=== PATIENT | male | born 1970 | race Caucasian/White ===

== ENCOUNTER 2017-01-20 16:50 | Emergency (ER) | payer OTHER ==
[~2017-01-20] VITALS: Ht 182.9 cm; Wt 69.1 kg
[2017-01-20] MEDS ORDERED: FLUORESCEIN OPHTH 1 MG STRIP As Ordered ONE (17:32)
[2017-01-20] MEDS ORDERED: FLUORESCEIN OPHTH 1 MG STRIP OD ONE (17:45)
[2017-01-20 18:30] VITALS: BP 124/70
== END 2017-01-20 18:36 | disposition home or self-care (01) ==
LOC: M ED 18:35
DX: H10.31 Unspecified acute conjunctivitis, right eye (principal); F17.200 Nicotine dependence, unspecified, uncomplicated

== ENCOUNTER → 2018-08-18 | Outpatient (CLI) | payer OTHER ==
[2018-08-18 18:10] LABS: BASO # 0.1 10^3/uL (0.0-0.2); BASO % 0.7 % (0.0-1.0); EOS # 0.1 10^3/uL (0.0-0.50); EOS % 1.2 % (0.0-3.0); HEMATOCRIT 45.6 % (42.0-52.0); HEMOGLOBIN 15.4 g/dl (13.5-17.5); LYMPH # 1.2 10^3/uL (1.5-4.5); LYMPH % 17.2 % (24.0-44.0); MEAN CORPUSCULAR HEMOGLOBIN 29.1 pg (27.0-33.0); MEAN CORPUSCULAR HGB CONC 33.8 g/dl (32.0-36.5); MEAN CORPUSCULAR VOLUME 86.2 fl (80.0-96.0); MONO # 0.5 10^3/uL (0.0-0.8); MONO % 6.6 % (0.0-5.0); NEUTROPHILS # 5.1 10^3/uL (1.8-7.7); PLATELET COUNT, AUTOMATED 239 10^3/uL (150-450); RED BLOOD COUNT 5.29 10^6/uL (4.30-6.10); WHITE BLOOD COUNT 6.9 10^3/uL (4.0-10.0)
[2018-08-18 18:13] LABS: ALBUMIN 4.3 GM/DL (3.2-5.2); ALT/SGPT 20 U/L (12-78); AMYLASE 90 U/L (25-115); BILIRUBIN,TOTAL 0.5 MG/DL (0.2-1.0); BLOOD UREA NITROGEN 16 MG/DL (7-18); CALCIUM LEVEL 8.8 MG/DL (8.5-10.1); CARBON DIOXIDE LEVEL 29 MEQ/L (21-32); CHLORIDE LEVEL 102 MEQ/L (98-107); CREATININE FOR GFR 0.88 MG/DL (0.70-1.30); GLOMERULAR FILTRATION RATE > 60.0 (>60); GLUCOSE, FASTING 67 MG/DL (70-100); LIPASE 100 U/L (73-393); POTASSIUM SERUM 4.3 MEQ/L (3.5-5.1); SODIUM LEVEL 138 MEQ/L (136-145); TOTAL PROTEIN 7.1 GM/DL (6.4-8.2)
== END ==
LOC: M LABDRWAD 11:03
PROVIDERS: ATTEND Physician Assistant
DX: R10.32 Left lower quadrant pain (principal)

== ENCOUNTER 2018-09-12 10:55 | Emergency (ER) | payer OTHER ==
[~2018-09-12] VITALS: Ht 182.9 cm; Wt 68.2 kg
[2018-09-12 10:55] VITALS: BP 132/78
[2018-09-12] MEDS ORDERED: CYCLOBENZAPRINE 10 MG TAB PO ONE (12:00)
[2018-09-12] MEDS ORDERED: LIDO5DIS41 TD (12:00)
[2018-09-12] MEDS ORDERED: NAPROXEN 250 MG TAB PO ONE (12:00)
[2018-09-12] MEDS ORDERED: CYCL10TA PO (12:01)
--- NOTE | 2018-09-12 15:10 | REP ---
CT LUMBAR SPINE WITHOUT CONTRAST: HISTORY: Pain. A diffuse disc bulge is present at the L1-2 level. There is minimal compression of the thecal sac. There is hypertrophy of the posterior articulating facets. The L1 nerves exit the neural foramina without compression. A diffuse disc bulge is present at the L2-3 level. There is hypertrophy of the ligamenta flava and posterior articulating facets. These findings produce mild central canal stenosis. The L2 nerves exit the neural foramina without compression. A diffuse disc bulge is present at the L3-4 level. There is hypertrophy of the ligamenta flava and posterior articulating facets. These findings produce mild central canal stenosis. The L3 nerves exit the neural foramina without compression. A diffuse disc bulge is present at the L4-5 level. There is hypertrophy of the ligamenta flava and posterior articulating facets. These findings produce moderate central canal stenosis. There is compression of the L4 nerves in the neural foramina. A diffuse disc bulge is present at the L5-S1 level. There is minimal compression of the thecal sac. There is hypertrophy of the posterior articulating facets. The L5 nerves exit the neural foramina without compression. The lumbar intervertebral discs are decreased in height. Vacuum phenomenon is present at the L3-4 level. These findings are consistent with disc degeneration. There is no subluxation. IMPRESSION: 1. Diffuse disc bulges at the L1-2 and L5-S1 levels with minimal thecal sac compression. 2. Mild central canal stenosis at the L2-3 and L3-4 levels secondary to disc bulge, ligamentous and facet hypertrophy. 3. Moderate central canal stenosis at the L4-5 level secondary to disc bulge, ligamentous and facet hypertrophy. There is compression of the L4 nerves in the neural foramina. Electronically Signed by Caleb Lane MD 09/12/2018 03:14 P
--- NOTE | 2018-09-12 16:12 | ED PDOC ---
Post-Departure [facility]Up [facility] faxed formal report of ct ls spine for fu Parisa Mclaughlin MD Sep 12, 2018 16:12
== END 2018-09-12 12:08 | disposition home or self-care (01) ==
LOC: M ED 10:55
DX: M48.061 Spinal stenosis, lumbar region without neurogenic claudication (principal); M48.07 Spinal stenosis, lumbosacral region; W01.0XXA Fall on same level from slipping, tripping and stumbling without subsequent striking against object, initial encounter; Y92.89 Other specified places as the place of occurrence of the external cause; Y99.0 Civilian activity done for income or pay; F17.200 Nicotine dependence, unspecified, uncomplicated; Z98.1 Arthrodesis status

== ENCOUNTER 2018-09-14 12:50 | Emergency (ER) | payer OTHER ==
[~2018-09-14] VITALS: Ht 182.9 cm; Wt 68.2 kg
[2018-09-14 12:50] VITALS: BP 137/64
[~2018-09-14 12:50] MED LIST: CYCL10TA PO; LIDO5DIS41 TD
[2018-09-14] MEDS ORDERED: IBUP-1022 PO (13:29)
== END 2018-09-14 13:44 | disposition home or self-care (01) ==
LOC: M ED 12:50
DX: S39.012A Strain of muscle, fascia and tendon of lower back, initial encounter (principal)

== ENCOUNTER 2018-10-17 19:23 | Emergency (ER) | payer OTHER ==
[~2018-10-17] VITALS: Ht 182.9 cm; Wt 68.2 kg
[~2018-10-17 19:23] MED LIST changes: +IBUP-1022 PO
[2018-10-17] MEDS ORDERED: TETRACAINE 0.5% OPHTH SOLN 4ML OS ONE (20:15)
[2018-10-17] MEDS ORDERED: FLUORESCEIN OPHTH 1 MG STRIP OS ONE (20:15)
[2018-10-17] MEDS ORDERED: OFLOXACIN 0.3 % (OCUFLOX) OPTH SOL 5ML OS ONE (20:30)
[2018-10-17] MEDS ORDERED: OFLOXACIN 0.3 % (OCUFLOX) OPTH SOL 5ML OS SCH (20:30)
[2018-10-17] MEDS ORDERED: KETOROLAC 0.5% OPHTH SOLN OS ONE (20:45)
[2018-10-17] MEDS ORDERED: KETO0.5S2 OS (21:25)
[2018-10-17] MEDS ORDERED: OFLO3OPSO OS (21:26)
[2018-10-17 21:33] VITALS: BP 116/58
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
== END 2018-10-17 21:56 | disposition home or self-care (01) ==
LOC: M ED 19:23
DX: S05.02XA Injury of conjunctiva and corneal abrasion without foreign body, left eye, initial encounter (principal); W22.8XXA Striking against or struck by other objects, initial encounter; Y92.89 Other specified places as the place of occurrence of the external cause; H54.40 Blindness, one eye, unspecified eye; F17.210 Nicotine dependence, cigarettes, uncomplicated

== ENCOUNTER → 2018-11-03 | Outpatient (REF) | payer OTHER ==
[~2018-11-03] MED LIST changes: +KETO0.5S2 OS; +OFLO3OPSO OS
[2018-11-03 18:45] LABS: BASO % 0.7 % (0.0-1.0); EOS # 0.1 10^3/uL (0.0-0.50); EOS % 2.2 % (0.0-3.0); HEMATOCRIT 44.3 % (42.0-52.0); HEMOGLOBIN 14.4 g/dl (13.5-17.5); LYMPH % 18.4 % (24.0-44.0); MEAN CORPUSCULAR HEMOGLOBIN 28.9 pg (27.0-33.0); MEAN CORPUSCULAR HGB CONC 32.5 g/dl (32.0-36.5); MEAN CORPUSCULAR VOLUME 88.8 fl (80.0-96.0); MONO # 0.4 10^3/uL (0.0-0.8); MONO % 8.2 % (0.0-5.0); NEUTROPHILS # 3.8 10^3/uL (1.8-7.7); NEUTROPHILS % 70.3 % (36.0-66.0); PLATELET COUNT, AUTOMATED 247 10^3/uL (150-450); RED BLOOD COUNT 4.99 10^6/uL (4.30-6.10); WHITE BLOOD COUNT 5.3 10^3/uL (4.0-10.0)
[2018-11-03 18:52] LABS: ALBUMIN 4.1 GM/DL (3.2-5.2); ALT/SGPT 23 U/L (12-78); BILIRUBIN,TOTAL 0.4 MG/DL (0.2-1.0); BLOOD UREA NITROGEN 18 MG/DL (7-18); CALCIUM LEVEL 8.5 MG/DL (8.5-10.1); CARBON DIOXIDE LEVEL 28 MEQ/L (21-32); CHLORIDE LEVEL 108 MEQ/L (98-107); CHOLESTEROL LEVEL 168 MG/DL (<200); CREATININE FOR GFR 0.89 MG/DL (0.70-1.30); GLOMERULAR FILTRATION RATE > 60.0 (>60); GLUCOSE, FASTING 80 MG/DL (70-100); HDL CHOLESTEROL 60 MG/DL (>40); LDL CHOLESTEROL 94 MG/DL (<100); NON-HDL-C 108 MG/DL; POTASSIUM SERUM 4.4 MEQ/L (3.5-5.1); SODIUM LEVEL 141 MEQ/L (136-145); TOTAL PROTEIN 6.9 GM/DL (6.4-8.2); TRIGLYCERIDES LEVEL 70 MG/DL (<150)
[2018-11-05 10:41] LABS: HIV 1&2 SCREEN CENTAUR NEGATIVE (NEGATIVE)
== END ==
LOC: M SFHCADAM 08:09
PROVIDERS: ATTEND Family Medicine
DX: Z00.00 Encounter for general adult medical examination without abnormal findings (principal); L81.8 Other specified disorders of pigmentation

== ENCOUNTER → 2018-11-21 | Outpatient (CLI) | payer OTHER ==
--- NOTE | 2018-11-21 12:43 | REP ---
RIGHT HIP, TWO VIEWS: HISTORY: Hip pain. There is no acute fracture or dislocation. There is minimal narrowing of the joint space with associated sclerosis. IMPRESSION: Degenerative change as described above. Electronically Signed by Caleb Lane MD 11/21/2018 12:49 P
== END ==
LOC: M ADAMS 10:39
PROVIDERS: ATTEND Family Medicine
DX: M16.11 Unilateral primary osteoarthritis, right hip (principal)

== ENCOUNTER 2019-04-23 02:43 | Emergency (ER) | payer OTHER ==
[~2019-04-23] VITALS: Ht 185.4 cm; Wt 68.2 kg
[2019-04-23 02:44] VITALS: BP 125/65
== END 2019-04-23 02:52 | disposition left against medical advice (07) ==
LOC: M ED 02:43
DX: Z53.21 Procedure and treatment not carried out due to patient leaving prior to being seen by health care provider (principal)

== ENCOUNTER → 2019-05-16 | Outpatient (REF) | payer OTHER | LOC: M SFHCPLAZ 13:14 | PROVIDERS: ATTEND Dermatology | DX: D22.62 Melanocytic nevi of left upper limb, including shoulder (principal) ==

== ENCOUNTER 2019-06-22 13:11 | Emergency (ER) | payer OTHER ==
[~2019-06-22] VITALS: Ht 182.9 cm; Wt 68.2 kg
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
[2019-06-22] MEDS ORDERED: LIDOCAINE 1% MDV 20ML VIAL INFIL ONE (14:45)
[2019-06-22] MEDS: ADACEL/BOOSTRIX VACCINE (DIPHTH/PERTUSS/ACELL/TETANUS)0.5ML SYR (90715) IM ONE ×2 (14:47→15:00)
[2019-06-22] MEDS ORDERED: IBUPROFEN 800 MG TAB PO ONE (15:00)
[2019-06-22] MEDS ORDERED: KEFL500C17 PO (15:38)
[2019-06-22] MEDS ORDERED: ceFAZolin 1GM INJ (J0690 PER 500MG) IM ONE (15:45)
[2019-06-22 16:06] VITALS: BP 129/75
[2019-06-24 11:57] LABS: HEPATITIS B SURFACE ANTIGEN NEGATIVE (NEGATIVE); HEPATITIS C VIRUS ABY INDEX 0.1 INDEX (<0.8)
== END 2019-06-22 16:12 | disposition home or self-care (01) ==
LOC: M ED 13:11
DX: S02.2XXB Fracture of nasal bones, initial encounter for open fracture (principal); W20.8XXA Other cause of strike by thrown, projected or falling object, initial encounter; Y92.007 Garden or yard of unspecified non-institutional (private) residence as the place of occurrence of the external cause; Y93.89 Activity, other specified; Y99.8 Other external cause status; J34.2 Deviated nasal septum; F17.210 Nicotine dependence, cigarettes, uncomplicated
CPT/HCPCS: 12011; 36415; 70450; 70486; 86803; 87340; 87806; 90471; 96372; 99283; J0690

== ENCOUNTER → 2020-02-06 | Outpatient (CLI) | payer OTHER ==
[~2020-02-06] MED LIST changes: +CYCL-707 PO; -CYCL10TA PO; +KEFL500C17 PO
== END ==
LOC: M LABSMTC 12:44
PROVIDERS: ATTEND Family Medicine
DX: Z11.59 Encounter for screening for other viral diseases (principal)
CPT/HCPCS: C9803; U0003

== ENCOUNTER 2020-02-19 16:52 | Emergency (ER) | payer OTHER ==
[~2020-02-19] VITALS: Ht 182.9 cm; Wt 63.3 kg
--- NOTE | 2020-02-19 18:05 | REP ---
Left knee series: Five views. History: Left knee swelling. Findings: Five views of the left knee show prepatellar soft-tissue swelling. There is quadriceps tendon insertion site spurring at the superior pole the patella. Slight fullness is seen in the suprapatellar bursa suggestive of a small joint effusion. No fracture is seen. No subluxation noted. Impression: No acute bony abnormality. Possible joint effusion. Prominent prepatellar soft-tissue swelling. Quadriceps tendon insertion site spurring on the patella. Electronically Signed by Zach Iniguez MD 02/19/2020 05:56 P
[2020-02-19 18:39] LABS: BASO % 0.5 % (0.0-1.0); EOS # 0.2 10^3/uL (0.0-0.5); HEMATOCRIT 42.1 % (42.0-52.0); HEMOGLOBIN 14.1 g/dl (13.5-17.5); LYMPH % 17.1 % (24.0-44.0); MEAN CORPUSCULAR HEMOGLOBIN 29.7 pg (27.0-33.0); MEAN CORPUSCULAR HGB CONC 33.5 g/dl (32.0-36.5); MEAN CORPUSCULAR VOLUME 88.6 fl (80.0-96.0); MONO # 0.5 10^3/uL (0.0-0.8); NEUTROPHILS % 70.2 % (36.0-66.0); PLATELET COUNT, AUTOMATED 249 10^3/uL (150-450); RED BLOOD COUNT 4.75 10^6/uL (4.30-6.10); WHITE BLOOD COUNT 5.7 10^3/uL (4.0-10.0)
[2020-02-19 19:09] LABS: ALBUMIN 3.7 GM/DL (3.2-5.2); ALT/SGPT 22 U/L (12-78); BILIRUBIN,DIRECT < 0.1 MG/DL (0.0-0.2); BILIRUBIN,TOTAL 0.3 MG/DL (0.2-1.0); BLOOD UREA NITROGEN 18 MG/DL (7-18); C REACTIVE PROTEIN QUANTITATIV 2.11 MG/DL (0.00-0.30); CALCIUM LEVEL 8.8 MG/DL (8.5-10.1); CARBON DIOXIDE LEVEL 27 MEQ/L (21-32); CHLORIDE LEVEL 110 MEQ/L (98-107); CREATININE FOR GFR 0.88 MG/DL (0.70-1.30); ERYTHROCYTE SEDIMENTATION RATE 6 mm/hr (0-15); GLOMERULAR FILTRATION RATE > 60.0 (>60); GLUCOSE, FASTING 81 MG/DL (70-100); POTASSIUM SERUM 3.9 MEQ/L (3.5-5.1); SODIUM LEVEL 142 MEQ/L (136-145); TOTAL PROTEIN 6.9 GM/DL (6.4-8.2)
[2020-02-19 19:28] VITALS: BP 128/70
== END 2020-02-19 19:43 | disposition home or self-care (01) ==
LOC: M ED 16:52
DX: S80.212A Abrasion, left knee, initial encounter (principal); M25.462 Effusion, left knee; W22.09XA Striking against other stationary object, initial encounter; Y92.89 Other specified places as the place of occurrence of the external cause; Y93.89 Activity, other specified; Y99.8 Other external cause status

== ENCOUNTER → 2020-03-13 | Outpatient (CLI) | payer OTHER ==
[2020-05-26 15:26] LABS: Lyme Disease IgG/IgM Antibodie See Separate Report
== END ==
LOC: M LAB 07:28
PROVIDERS: ATTEND Physician Assistant
DX: M70.42 Prepatellar bursitis, left knee (principal)

== ENCOUNTER 2022-06-21 14:16 | Emergency (ER) | payer OTHER ==
[~2022-06-21] VITALS: Ht 182.9 cm; Wt 69.0 kg
[2022-06-21 14:55] LABS: BASO % 0.5 % (0.0-1.0); EOS # 0.1 10^3/uL (0.0-0.5); EOS % 0.6 % (0.0-3.0); HEMOGLOBIN 13.7 g/dl (13.5-17.5); LYMPH # 0.9 10^3/uL (1.5-5.0); LYMPH % 11.8 % (24.0-44.0); MEAN CORPUSCULAR HEMOGLOBIN 29.5 pg (27.0-33.0); MEAN CORPUSCULAR HGB CONC 33.4 g/dl (32.0-36.5); MEAN CORPUSCULAR VOLUME 88.2 fl (80.0-96.0); MONO # 0.4 10^3/uL (0.0-0.8); MONO % 5.3 % (2.0-8.0); NEUTROPHILS # 6.4 10^3/uL (1.5-8.5); NEUTROPHILS % 81.5 % (36.0-66.0); PLATELET COUNT, AUTOMATED 231 10^3/uL (150-450); RED BLOOD COUNT 4.65 10^6/uL (4.30-6.10); WHITE BLOOD COUNT 7.8 10^3/uL (4.0-10.0)
[2022-06-21 15:20] LABS: ALBUMIN 3.8 G/DL (3.2-5.2); ALT/SGPT 15 U/L (7.0-40); BILIRUBIN,TOTAL 0.3 MG/DL (0.3-1.2); BLOOD UREA NITROGEN 15 MG/DL (9-23); CALCIUM LEVEL 8.9 MG/DL (8.5-10.1); CARBON DIOXIDE LEVEL 28 MMOL/L (20-31); CHLORIDE LEVEL 106 MMOL/L (98-107); CREATININE FOR GFR 0.91 MG/DL (0.70-1.30); ETHYL ALCOHOL (ETHANOL) 0.003 % (0.000-0.010); GLOMERULAR FILTRATION RATE > 60.0 (>60); GLUCOSE, FASTING 100 MG/DL (60-100); POTASSIUM SERUM 3.8 MMOL/L (3.5-5.1); SODIUM LEVEL 141 MMOL/L (136-145); TOTAL PROTEIN 6.3 G/DL (5.7-8.2)
[2022-06-21 19:36] VITALS: O2SAT 99
[2022-06-21 19:37] VITALS: BP 117/76
== END 2022-06-21 20:05 | disposition home or self-care (01) ==
LOC: EDBD 14:16 → M ED 14:16
DX: R55 Syncope and collapse (principal); R00.2 Palpitations

== ENCOUNTER → 2022-11-17 | Outpatient (REF) | payer OTHER ==
[~2022-11-17] MED LIST changes: -OFLO3OPSO OS; +OFLO5DRO OS
== END ==
LOC: M SFHCDERM 17:19
PROVIDERS: ATTEND Nurse Practitioner Family
DX: L81.4 Other melanin hyperpigmentation (principal)

== ENCOUNTER → 2023-02-07 | Outpatient (REF) | payer OTHER ==
[2023-02-07 13:53] LABS: ALBUMIN 3.7 G/DL (3.2-5.2); ALKALINE PHOSPHATASE 81 U/L (46-116); ALT/SGPT 12 U/L (7.0-40); AST/SGOT 23 U/L (<34); BILIRUBIN,TOTAL 0.3 MG/DL (0.3-1.2); BLOOD UREA NITROGEN 13 MG/DL (9-23); CALCIUM LEVEL 9.1 MG/DL (8.5-10.1); CARBON DIOXIDE LEVEL 31 MMOL/L (20-31); CHLORIDE LEVEL 108 MMOL/L (98-107); GLOMERULAR FILTRATION RATE > 60.0 (>56); GLUCOSE, FASTING 83 MG/DL (60-100); POTASSIUM SERUM 4.7 MMOL/L (3.5-5.1); SODIUM LEVEL 142 MMOL/L (136-145); TOTAL PROTEIN 6.4 G/DL (5.7-8.2)
[2023-02-07 13:56] LABS: THYROID STIMULATING HORMONE 2.159 uIU/ML (0.55-4.78)
== END ==
LOC: M SFHCADAM 08:03
PROVIDERS: ATTEND Family Medicine
DX: R51.9 Headache, unspecified (principal)

== ENCOUNTER → 2023-02-07 | Outpatient (CLI) | payer OTHER | LOC: M PLAIMG 11:36 | PROVIDERS: ATTEND Family Medicine | DX: R51.9 Headache, unspecified (principal) ==

== ENCOUNTER → 2023-05-24 | Outpatient (CLI) | payer OTHER | LOC: M RAD 14:30 | PROVIDERS: ATTEND Physician Assistant | DX: F17.210 Nicotine dependence, cigarettes, uncomplicated (principal) ==

== ENCOUNTER → 2023-06-19 | Outpatient (CLI) | payer OTHER | LOC: M ADAMS 09:16 | PROVIDERS: ATTEND Family Medicine | DX: M25.551 Pain in right hip (principal) ==

== ENCOUNTER → 2023-07-18 | Outpatient (CLI) | payer OTHER ==
[~2023-07-18] MED LIST changes: +E-Z-GAS II EFFERVESCENT PACKET (SODIUM BICARB./CITRIC ACID/SIMETHICONE) As Ordered ONE; +E-Z-HD 98% w/w 340GM SUSP BTL As Ordered ONE; +E-Z-PAQUE 96% w/w SUSP 176GM BTL As Ordered ONE
== END ==
LOC: M RAD 07:52
PROVIDERS: ATTEND Internal Medicine Gastroenterology
DX: R13.10 Dysphagia, unspecified (principal)

== ENCOUNTER 2023-07-28 12:44 | Day surgery (SDC) | payer OTHER ==
[~2023-07-28] VITALS: Ht 182.9 cm; Wt 63.5 kg
[~2023-07-28 12:44] MED LIST changes: -E-Z-GAS II EFFERVESCENT PACKET (SODIUM BICARB./CITRIC ACID/SIMETHICONE) As Ordered ONE; -E-Z-HD 98% w/w 340GM SUSP BTL As Ordered ONE; -E-Z-PAQUE 96% w/w SUSP 176GM BTL As Ordered ONE; +LIDOCAINE 2% 100MG/5ML SDV (FOR ANES.) As Ordered ONE; +NS 1,000 ML IV ONE; +propofoL 200 MG/20 ML VIAL As Ordered ONE
[2023-07-28] MEDS ORDERED: fentaNYL 100 MCG/2 ML INJECTION As Ordered ONE (14:23)
[2023-07-28 15:04] VITALS: TEMP 98.5
[2023-07-28 15:20] VITALS: BP 131/78; O2SAT 97
== END 2023-07-28 15:32 | disposition home or self-care (01) ==
LOC: M OPP 12:44
PROVIDERS: ATTEND Internal Medicine Gastroenterology
DX: R13.12 Dysphagia, oropharyngeal phase (principal); F17.200 Nicotine dependence, unspecified, uncomplicated; G47.9 Sleep disorder, unspecified
CPT/HCPCS: 43239; 43450; 88305; J3010

== ENCOUNTER → 2023-08-14 | Outpatient (CLI) | payer OTHER ==
[~2023-08-14] MED LIST changes: -LIDOCAINE 2% 100MG/5ML SDV (FOR ANES.) As Ordered ONE; -NS 1,000 ML IV ONE; -propofoL 200 MG/20 ML VIAL As Ordered ONE
== END ==
LOC: M SOG 08:05
PROVIDERS: ATTEND Physician Assistant
DX: M25.551 Pain in right hip (principal); M47.816 Spondylosis without myelopathy or radiculopathy, lumbar region; M47.817 Spondylosis without myelopathy or radiculopathy, lumbosacral region; M46.06 Spinal enthesopathy, lumbar region; M46.07 Spinal enthesopathy, lumbosacral region

== ENCOUNTER → 2023-08-23 | Outpatient (CLI) | payer OTHER | LOC: M PLAIMG 06:39 | PROVIDERS: ATTEND Physician Assistant | DX: M54.59 Other low back pain (principal) ==

== ENCOUNTER → 2023-12-06 | Outpatient (CLI) | payer OTHER ==
[~2023-12-06] MED LIST changes: +ISOVUE-370 76% 100ML VIAL ONE
== END ==
LOC: M PLAIMG 08:40
PROVIDERS: ATTEND Family Medicine
DX: R93.89 Abnormal findings on diagnostic imaging of other specified body structures (principal)

== ENCOUNTER → 2023-12-08 | Outpatient (CLI) | payer OTHER ==
[~2023-12-08] MED LIST changes: -ISOVUE-370 76% 100ML VIAL ONE
== END ==
LOC: M SOG 07:54
PROVIDERS: ATTEND Physician Assistant
DX: M25.552 Pain in left hip (principal); M79.652 Pain in left thigh

== ENCOUNTER → 2024-02-17 | Outpatient (CLI) | payer OTHER | LOC: M RAD 08:10 | PROVIDERS: ATTEND Physician Assistant | DX: G57.32 Lesion of lateral popliteal nerve, left lower limb (principal); M23.222 Derangement of posterior horn of medial meniscus due to old tear or injury, left knee; M23.252 Derangement of posterior horn of lateral meniscus due to old tear or injury, left knee; M79.662 Pain in left lower leg ==

== ENCOUNTER → 2024-03-08 | Outpatient (CLI) | payer OTHER | LOC: M PAIN 16:30 | PROVIDERS: ATTEND Anesthesiology | DX: M79.18 Myalgia, other site (principal); M51.16 Intervertebral disc disorders with radiculopathy, lumbar region; M48.061 Spinal stenosis, lumbar region without neurogenic claudication; M54.50 Low back pain, unspecified; G89.29 Other chronic pain; F17.210 Nicotine dependence, cigarettes, uncomplicated; Z79.891 Long term (current) use of opiate analgesic ==

== ENCOUNTER → 2024-04-05 | Outpatient (REF) | payer OTHER ==
[2024-04-05 13:15] LABS: ALBUMIN 3.9 G/DL (3.2-5.2); ALKALINE PHOSPHATASE 85 U/L (46-116); ALT/SGPT 22 U/L (7.0-40); AST/SGOT 20 U/L (<34); BILIRUBIN,TOTAL 0.4 MG/DL (0.3-1.2); BLOOD UREA NITROGEN 20 MG/DL (9-23); CALCIUM LEVEL 9.7 MG/DL (8.5-10.1); CARBON DIOXIDE LEVEL 28 MMOL/L (20-31); CHLORIDE LEVEL 106 MMOL/L (98-107); CREATININE FOR GFR 0.74 MG/DL (0.70-1.30); GLOMERULAR FILTRATION RATE > 60.0 (>56); GLUCOSE, FASTING 83 MG/DL (60-100); POTASSIUM SERUM 4.5 MMOL/L (3.5-5.1); SODIUM LEVEL 139 MMOL/L (136-145)
== END ==
LOC: M SFHCADAM 07:55
PROVIDERS: ATTEND Family Medicine
DX: M54.16 Radiculopathy, lumbar region (principal)

== ENCOUNTER → 2024-06-14 | Outpatient (CLI) | payer OTHER ==
[~2024-06-14] MED LIST changes: +ISOVUE-370 76% 100ML VIAL As Ordered ONE
== END ==
LOC: M RAD 15:34
PROVIDERS: ATTEND Family Medicine
DX: R93.89 Abnormal findings on diagnostic imaging of other specified body structures (principal)
CPT/HCPCS: 71260; Q9967

== ENCOUNTER → 2024-09-11 | Day surgery (SDC) | payer OTHER ==
[~2024-09-11] VITALS: Ht 182.9 cm; Wt 65.1 kg
[~2024-09-11] MED LIST changes: +ACETAMINOPHEN 1000MG/100ML IV BAG As Ordered ONE; +ALBUTEROL 6.7GM INHALER **FOR ANES. CART/OMNICELL ONLY As Ordered ONE; +HYDR-3713 PO; +HYDROMORPHONE HCL 0.5 MG/ 0.5 ML SYRINGE IV PRN; -ISOVUE-370 76% 100ML VIAL As Ordered ONE; +LIDOCAINE 2% 100MG/5ML SDV (FOR ANES.) As Ordered ONE; +MIDAZOLAM INJ 2MG/2ML VIAL As Ordered ONE; +NS (Normal Saline) 0.9% 1,000 ML IV SCH; +ONDANSETRON 4MG 2ML VIAL As Ordered ONE; +ONDANSETRON 4MG 2ML VIAL IV PRN; +ROCURONIUM BROMIDE 50MG/5ML VIAL As Ordered ONE; +SUGAMMADEX SODIUM 500 MG/5 ML VIAL (BRIDION) As Ordered ONE; +fentaNYL 100 MCG/2 ML INJECTION As Ordered ONE; +fentaNYL 100 MCG/2 ML INJECTION IV PRN; +oxyCODONE 5MG TAB PO PRN; +propofoL 200 MG/20 ML VIAL As Ordered ONE
[2024-09-11] MEDS: ALBUTEROL SULFATE 2.5MG/0.5ML INH NEB SOLN INH ONE (10:00)
[2024-09-11] MEDS: LIDOCAINE PRES-FREE 2% 10ML AMP INH ONE (10:00)
[2024-09-11] MEDS: CETACAINE SPRAY 5GM As Ordered ONE (10:48)
[2024-09-11] MEDS: EPINEPHrine 1MG/10ML SYRINGE 1.5IN As Ordered ONE (11:10)
[2024-09-11 12:20] VITALS: BP 118/56; TEMP 98.5; O2SAT 96
== END | disposition home or self-care (01) ==
LOC: M SDC 08:43
PROVIDERS: ATTEND Internal Medicine Critical Care Medicine
DX: J62.8 Pneumoconiosis due to other dust containing silica (principal); R59.0 Localized enlarged lymph nodes; R06.83 Snoring; Z79.891 Long term (current) use of opiate analgesic; F17.210 Nicotine dependence, cigarettes, uncomplicated; Z77.090 Contact with and (suspected) exposure to asbestos; Z86.11 Personal history of tuberculosis
CPT/HCPCS: 31624; 31628; 31652; 71045; 76000; 87070; 87077; 87102; 87116; 87184; 87205; 87206; 88108; 88173; 88305; 88313; J0131; J1100; J2250; J2405; J3010

== ENCOUNTER → 2024-09-12 | Outpatient (CLI) | payer OTHER ==
[~2024-09-12] MED LIST changes: -ACETAMINOPHEN 1000MG/100ML IV BAG As Ordered ONE; -ALBUTEROL 6.7GM INHALER **FOR ANES. CART/OMNICELL ONLY As Ordered ONE; -HYDROMORPHONE HCL 0.5 MG/ 0.5 ML SYRINGE IV PRN; +ISOVUE-370 76% 100ML VIAL ONE; -LIDOCAINE 2% 100MG/5ML SDV (FOR ANES.) As Ordered ONE; -MIDAZOLAM INJ 2MG/2ML VIAL As Ordered ONE; -NS (Normal Saline) 0.9% 1,000 ML IV SCH; -ONDANSETRON 4MG 2ML VIAL As Ordered ONE; -ONDANSETRON 4MG 2ML VIAL IV PRN; -ROCURONIUM BROMIDE 50MG/5ML VIAL As Ordered ONE; -SUGAMMADEX SODIUM 500 MG/5 ML VIAL (BRIDION) As Ordered ONE; -fentaNYL 100 MCG/2 ML INJECTION As Ordered ONE; -fentaNYL 100 MCG/2 ML INJECTION IV PRN; -oxyCODONE 5MG TAB PO PRN; -propofoL 200 MG/20 ML VIAL As Ordered ONE
== END ==
LOC: M PLAIMG 08:57
PROVIDERS: ATTEND Family Medicine
DX: R91.8 Other nonspecific abnormal finding of lung field (principal)

== ENCOUNTER → 2024-10-28 | Outpatient (CLI) | payer OTHER ==
[~2024-10-28] MED LIST changes: -ISOVUE-370 76% 100ML VIAL ONE
== END ==
LOC: M RAD 15:24
PROVIDERS: ATTEND Family Medicine
DX: I89.0 Lymphedema, not elsewhere classified (principal)

== ENCOUNTER → 2024-12-16 | Outpatient (CLI) | payer OTHER ==
[~2024-12-16] MED LIST changes: +LIDO1ADH93 TD; -LIDO5DIS41 TD
== END ==
LOC: M RAD 14:50
PROVIDERS: ATTEND Internal Medicine Critical Care Medicine
DX: R91.8 Other nonspecific abnormal finding of lung field (principal)

== ENCOUNTER → 2025-05-19 | Outpatient (REF) | payer OTHER ==
[~2025-05-19] MED LIST changes: -IBUP-1022 PO; +IBUP600T42 PO
[2025-05-19 13:25] LABS: BASO # 0.0 10^3/uL (0.0-0.2); BASO % 0.6 % (0.0-1.0); EOS # 0.1 10^3/uL (0.0-0.5); EOS % 2.0 % (0.0-3.0); LYMPH # 0.9 10^3/uL (1.5-5.0); LYMPH % 13.7 % (24.0-44.0); MONO # 0.5 10^3/uL (0.0-0.8); MONO % 6.8 % (2.0-8.0); NEUTROPHILS # 5.1 10^3/uL (1.5-8.5); NEUTROPHILS % 76.6 % (36.0-66.0); PLATELET COUNT, AUTOMATED 283 10^3/uL (150-450)
[2025-05-19 13:56] LABS: ALT/SGPT 15 U/L (7.0-40); AST/SGOT 22 U/L (<34); CALCIUM LEVEL 9.0 MG/DL (8.5-10.1); CARBON DIOXIDE LEVEL 29 MMOL/L (20-31); CHLORIDE LEVEL 107 MMOL/L (98-107); CHOLESTEROL LEVEL 157 MG/DL (<200); CHOLESTEROL RISK RATIO 2.62 (<5); CREATININE FOR GFR 0.79 MG/DL (0.70-1.30); GLOMERULAR FILTRATION RATE > 90.0 (>56); LDL CHOLESTEROL 86.1 MG/DL (<100); NON-HDL-C 97.3 MG/DL; POTASSIUM SERUM 4.6 MMOL/L (3.5-5.1); SODIUM LEVEL 143 MMOL/L (136-145); TRIGLYCERIDES LEVEL 56 MG/DL (<150)
[2025-05-19 13:57] LABS: FREE T4 1.14 NG/DL (0.89-1.76)
== END ==
LOC: M SFHCADAM 08:10
PROVIDERS: ATTEND Family Medicine
DX: Z00.00 Encounter for general adult medical examination without abnormal findings (principal); R68.82 Decreased libido

== ENCOUNTER → 2025-05-19 | Outpatient (CLI) | payer OTHER | LOC: M ADAMS 08:32 | PROVIDERS: ATTEND Family Medicine | DX: Z00.00 Encounter for general adult medical examination without abnormal findings (principal); R20.0 Anesthesia of skin; R68.82 Decreased libido; M50.30 Other cervical disc degeneration, unspecified cervical region ==